=== PATIENT | male | born 1995 | race Caucasian/White ===

== ENCOUNTER 2022-04-09 14:03 | Outpatient (CLI) | payer OTHER, SELFPAY ==
--- OUTSIDE RECORDS SUMMARY | 2022-04-09 14:06 | XMS_ITS | Clinical Summary ---
:1995 Author Organization [facility] Address [address] [place] [address] Care Team Providers Name Role Phone ShannanVargas swartz Brenda Primary Care Physician [phone] Encounter 12/03/21 - 12/03/21 [facility] [address] [place] [address]- Discharge Disposition: Home or Self Care Attending Physician: Nadja Fu APRN CNP Admitting Physician: Nadja Fu APRN CNP Referring Physician: Nadja Fu APRN CNP Allergies, Adverse Reactions, Alerts No Known Medication Allergies Substance Reaction Severity Status Latex Active Discharge Medications No Known Medications Problem List Condition Effective Dates Status Health Status Informant Unsteady gait(Confirmed) Active Foot drop, left(Confirmed) Active DYT1 dystonia(Confirmed) Active S/P deep brain stimulator Active placement(Confirmed) Procedures Procedure Date Related Diagnosis Body Site Status Implantation of electronic stimulator in Completed brain1, 2 1Deep Brain [id number] generator replacement 08/12/16 Dr. Matthew @ [facility] Immunizations Given and Recorded Vaccine Date Status Refusal Reason SARS-CoV-2 mRNA (tozinameran) vaccine 11/22/20 Recorded varicella virus vaccine 02/15/15 Recorded tetanus/diphth/pertuss (Tdap) adult/adol 02/15/15 Recorde d tetanus/diphth/pertuss (Tdap) adult/adol 10/05/07 Recorde d pneumococcal 23-polyvalent vaccine 02/15/15 Recorded meningococcal conjugate vaccine 02/15/15 Recorded influenza virus vaccine, inactivated 02/15/15 Recorded influenza virus vaccine, inactivated 01/14/05 Recorded influenza virus vaccine, inactivated 12/31/01 Recorded hepatitis A pediatric vaccine 09/15/08 Recorded hepatitis A pediatric vaccine 10/05/07 Recorded measles/mumps/rubella/varicella vaccine 10/05/07 Recorded poliovirus vaccine, inactivated 09/02/00 Recorded diphtheria/tetanus/pertussis (DTaP) ped 09/02/00 Recorded Vital Signs Most recent to oldest [Reference Range]: 1 Peripheral Pulse Rate [50-90 bpm] 80 bpm (12/03/21 9:06 AM) Blood Pressure [100-140/60-90 mmHg] 121/76 mmHg (12/03/21 9:06 AM) Height/Length Measured 185.2 cm (12/03/21 9:06 AM) Weight Measured 72 kg (12/03/21 9:06 AM) Weight Dosing 72 kg (12/03/21 9:06 AM) BSA Measured 1.92 m2 (12/03/21 9:06 AM) Body Mass Index Measured 20.99 kg/m2 (12/03/21 9:06 AM) Pain Present No actual or suspected pain (12/03/21 9:06 AM) Able to self report Yes (12/03/21 9:06 AM) able to use numeric rating scale Yes (12/03/21 9:06 AM) Social History Social History Type Response Smoking Status Current every day smoker; Ty pe: Vape; Exposure to Secondhand Smoke: No entered on: 12/03/21 Sex Treatment Plan Future AppointmentsAppointment Date:03/27/2022 10:00:00 AM Scheduled Provider:Main Michel MD Location:[facility] Clinic Appointment Type:Neurology - Standard Care Team PersonnelName: Vargas Reed MD Address: Address: [address] [address]
--- OUTSIDE RECORDS SUMMARY | 2022-04-09 14:06 | XMS_ITS | Clinical Summary ---
:1995 Author Organization [facility] Address [address] [place] [address] Care Team Providers Name Role Phone ShannanVargas swartz Brenda Primary Care Physician [phone] Encounter 08/29/21 - 08/29/21 [facility] [address] [place] [address] Encounter Diagnosis DYT1 dystonia (Discharge Diagnosis) - 08/29/21 S/P deep brain stimulator placement (Discharge Diagnosis) - 08/29/21 Discharge Disposition: Home or Self Care Attending Physician: Main Michel MD Admitting Physician: Main Michel MD Allergies, Adverse Reactions, Alerts No Known Medication Allergies Substance Reaction Severity Status Latex Active Discharge Medications No Known Medications Problem List Condition Effective Dates Status Health Status Informant Unsteady gait(Confirmed) Active Foot drop, left(Confirmed) Active DYT1 dystonia(Confirmed) Active S/P deep brain stimulator Active placement(Confirmed) Hospital Discharge Diagnosis DYT1 dystonia (Discharge Diagnosis) - 08/29/21 S/P deep brain stimulator placement (Discharge Diagnosis) - 08/29/21 (This Visit) Procedures Procedure Date Related Diagnosis Body Site Status Implantation of electronic stimulator in Completed brain1, 2 1Deep Brain [id number] generator replacement 08/12/16 Dr. Matthew @ [facility] Immunizations Given and Recorded Vaccine Date Status [...] Range]: 1 Peripheral Pulse Rate [50-90 bpm] 67 bpm (08/29/21 12:03 PM) Blood Pressure [100-140/60-90 mmHg] 124/81 mmHg (08/29/21 12:03 PM) Height/Length Measured 185.5 cm (08/29/21 12:03 PM) Weight Measured 66.5 kg (08/29/21 12:03 PM) Weight Dosing 66.5 kg (08/29/21 12:03 PM) BSA Measured 1.85 m2 (08/29/21 12:03 PM) Body Mass Index Measured 19.33 kg/m2 (08/29/21 12:03 PM) Pain Present Yes actual or suspected pain (08/29/21 12:03 PM) Able to self report Yes (08/29/21 12:03 PM) able to use numeric rating scale Yes (08/29/21 12:03 PM) Primary Pain Location Right, Neck (08/29/21 12:03 PM) Social History Social History Type Response Smoking Status Current every day smoker; Ty pe: Vape; Exposure to Secondhand Smoke: No entered on: 08/29/21 Sex Treatment Plan Future AppointmentsAppointment Date:12/03/2021 02:05:00 PM Scheduled Provider:Nadja Fu APRN CNP Location:[facility] - Clinic Appointment Type:Neurology - Standard Care Team PersonnelName: Vargas Reed MD Address: [address] [address]
[2022-04-10 00:16] LABS: Cholesterol* 136 mg/dL (90-199); HDL Cholesterol* 64 mg/dL (>=40)
== END 2022-04-09 14:04 | disposition home or self-care (01) ==
PROVIDERS: PCP Family Medicine; Visit Provider Family Medicine
DX: Z00.00 Encounter for general adult medical examination without abnormal findings (principal); R07.9 Chest pain, unspecified
CPT/HCPCS: 82465; 83718; 84443

== ENCOUNTER 2022-04-18 14:49 | Outpatient (CLI) | payer OTHER, SELFPAY ==
--- OUTSIDE RECORDS SUMMARY | 2022-04-18 13:42 | XMS_ITS | Clinical Summary ---
:1995 Author Organization [facility] Address [address] [place] [address] Care Team Providers Name Role Phone Vargas Reed Brenda Primary Care Physician [phone] Encounter 03/27/22 - 03/27/22 [facility] [address] [facility] [place] [address] Encounter Diagnosis DYT1 dystonia (Discharge Diagnosis) - 03/27/22 S/P deep brain stimulator placement (Discharge Diagnosis) - 03/27/22 Discharge Disposition: Home or Self Care Attending Physician: Main Michel MD Admitting Physician: Main Michel MD Referring Physician: Nadja Fu APRN [employer] Allergies, Adverse Reactions, Alerts No Known Medication Allergies Substance Reaction Severity Status Latex Active Discharge Medications minocycline (minocycline 50 mg oral capsule) Status: Ordered Start Date: 03/27/22 1 Capsules Oral 2 times a day. Problem List Condition Confirmation Course Effective Dates Status Health Stat us Informant Unsteady gait Confirmed Active Foot drop, left Confirmed Active DYT1 dystonia Confirmed Active S/P deep brain Confirmed Active stimulator placement Hospital Discharge Diagnosis DYT1 dystonia (Discharge Diagnosis) - 03/27/22 S/P deep brain stimulator placement (Discharge Diagnosis) - 03/27/22 (This Visit) Procedures Procedure Date Related Diagnosis Body Site Status Implantation of electronic stimulator in Completed brain1, 2 1Deep Brain [id number] generator replacement 08/12/16 Dr. Matthew @ [facility] Immunizations Given and Recorded Vaccine Date [...] Range]: 1 Peripheral Pulse Rate [50-90 bpm] 99 bpm *HI* (03/27/22 10:10 AM) Blood Pressure [100-140/60-90 mmHg] 138/82 mmHg (03/27/22 10:10 AM) Height/Length Measured 185.2 cm (03/27/22 10:10 AM) Weight Measured 72.8 kg (03/27/22 10:10 AM) Weight Dosing 72.8 kg (03/27/22 10:10 AM) BSA Measured 1.94 m2 (03/27/22 10:10 AM) Body Mass Index Measured 21.23 kg/m2 (03/27/22 10:10 AM) Pain Present No actual or suspected pain (03/27/22 10:10 AM) Able to self report Yes (03/27/22 10:10 AM) able to use numeric rating scale Yes (03/27/22 10:10 AM) Social History Social History Type Response Smoking Status Smoker, current status unkno wn; Type: vape entered on: 03/27/22 Sex Treatment Plan Future AppointmentsAppointment Date:07/16/2022 08:30:00 AM Scheduled Provider: Location:[facility] - Clinic Appointment Type:Gait and Motion Analysis - Complex Mvmt Appointment Date:07/16/2022 11:00:00 AM Scheduled Provider:Main Michel MD Location:[facility] - Clinic Appointment Type:Neurology - Standard Patient Care team information PersonnelName: Vargas Reed MD Address: Address: [address]
--- OUTSIDE RECORDS SUMMARY | 2022-04-18 13:42 | XMS_ITS | Clinical Summary ---
:1995 Author Organization [facility] Address [address] [place] [address] Care Team Providers Name Role Phone Vargas Reed Brenda Primary Care Physician [phone] Encounter 06/05/21 - 06/05/21 [facility] [address] [place] [address]- Encounter Diagnosis Neck pain (Discharge Diagnosis) - 06/05/21 DYT1 dystonia (Discharge Diagnosis) - 06/05/21 Discharge Disposition: Home or Self Care Attending Physician: Nadja Fu APRN CNP Admitting Physician: Nadja Fu APRN CNP Referring Physician: Nadja Fu APRN MEDICAL ASSISTANT SECRETARY Allergies, Adverse Reactions, Alerts No Known Medication Allergies Substance Reaction Severity Status Latex Active Discharge Medications No Known Medications Problem List Condition Effective Dates Status Health Status Informant Unsteady gait(Confirmed) Active Foot drop, left(Confirmed) Active DYT1 dystonia(Confirmed) Active S/P deep brain stimulator Active placement(Confirmed) Hospital Discharge Diagnosis DYT1 dystonia (Discharge Diagnosis) - 06/05/21 Neck pain (Discharge Diagnosis) - 06/05/21 (This Visit) Procedures Procedure Date Related Diagnosis Body Site Status Implantation of electronic stimulator in Completed brain1, 2 1Deep Brain [id number] generator replacement 08/12/16 Dr. Matthew @ [facility] Immunizations Given and Recorded Vaccine Date [...] Range]: 1 Peripheral Pulse Rate [50-90 bpm] 76 bpm (06/05/21 2:40 PM) Blood Pressure [100-140/60-90 mmHg] 121/78 mmHg (06/05/21 2:40 PM) Height/Length Measured 185.3 cm (06/05/21 2:40 PM) Weight Measured 66.7 kg (06/05/21 2:40 PM) Weight Dosing 66.7 kg (06/05/21 2:40 PM) BSA Measured 1.85 m2 (06/05/21 2:40 PM) Body Mass Index Measured 19.43 kg/m2 (06/05/21 2:40 PM) Pain Present Yes actual or suspected pain (06/05/21 2:40 PM) Able to self report Yes (06/05/21 2:40 PM) able to use numeric rating scale Yes (06/05/21 2:40 PM) Social History Social History Type Response Smoking Status Current every day smoker; Ty pe: Vape; Exposure to Secondhand Smoke: No entered on: 06/05/21 Sex Treatment Plan Future AppointmentsAppointment Date:08/29/2021 11:30:00 AM Scheduled Provider:Main Michel MD Location:[facility] - Clinic Appointment Type:Neurology - Standard
[2022-04-18 22:01] LABS: Cholesterol* 142 mg/dL (90-199); Triglycerides* 48 mg/dL (40-149)
[2022-04-18 22:02] LABS: HDL Cholesterol* 63 mg/dL (>=40); LDL Cholesterol Calculated 69 mg/dL (<100)
== END 2022-04-18 14:50 | disposition home or self-care (01) ==
PROVIDERS: PCP Family Medicine; Visit Provider Family Medicine
DX: Z00.00 Encounter for general adult medical examination without abnormal findings (principal); Z13.6 Encounter for screening for cardiovascular disorders
CPT/HCPCS: 80061